=== PATIENT | male | born 1975 | race Caucasian/White ===

== ENCOUNTER 2022-12-11 07:11 | Emergency (ER) | payer OTHER ==
[~2022-12-11] VITALS: Ht 180.3 cm; Wt 93.0 kg
[2022-12-11] VITALS (14 sets, daily range): BP systolic 139–165; BP diastolic 91–102
[~2022-12-11 07:11] MED LIST: LISINOPRIL10 MG PO; NO; PREDNISONE10 MG PO
[2022-12-11] MEDS ORDERED: AMOX/K CLAV875 M1 PO (09:15)
[2022-12-11] MEDS ORDERED: MECLIZINE 2525 MG PO (09:15)
== END 2022-12-11 10:30 | disposition home or self-care (01) | DRG 149 ==
LOC: ED 07:11
DX: R42 Dizziness and giddiness (principal); H66.91 Otitis media, unspecified, right ear